=== PATIENT | male | born 1960 | race African-American/Black ===

== ENCOUNTER 2021-09-26 14:04 | Emergency (ER) | payer SELFPAY ==
[~2021-09-26] VITALS: Ht 182.9 cm; Wt 77.0 kg
[~2021-09-26 14:04] MED LIST: ETOMIDATE 2MG/ML 10ML VIAL IV ONE; SUCCINYLCHOLINE CHLORIDE 200MG/10ML IV ONE
[2021-09-26] MEDS ORDERED: SODIUM CHLORIDE 0.9% 1,000 ML IV ONE (14:45)
[2021-09-26] MEDS ORDERED: NICARDIPINE 50 MG in SODIUM CHLORIDE 0.9% 230 ML IV STA (15:26)
[2021-09-26 15:38] LABS: HEMATOCRIT. 34.3 % (42.0-52.0); HEMOGLOBIN. 11.2 g/dL (14.0-18.0); MEAN CORPUSCULAR HEMOGLOBIN 28.3 pg (28.0-32.0); MEAN CORPUSCULAR VOLUME 86.3 fL (80.0-94.0); MEAN PLATELET VOLUME 7.7 fl (7.4-10.4); PLATELET 145 x1000/uL (130-400); RED BLOOD CELL COUNT 3.98 mill/uL (4.7-6.1); RED CELL DISTRIBUTION WIDTH 15.8 % (11.6-14.6)
[2021-09-26 15:42] LABS: CHLORIDE 110 mEq/L (98-107)
[2021-09-26 15:43] LABS: INR 1.1; PROTHROMBIN TIME 11.3 sec (9.6-11.0)
[2021-09-26] MEDS ORDERED: NICARDIPINE 40MG/200ML PREMIX 200 ML IV NR (15:45)
[2021-09-26 15:54] LABS: ETHANOL BLOOD < 10 mg/dL
[2021-09-26 15:58] LABS: PLATELET ESTIMATE NORMAL
[2021-09-26] MEDS ORDERED: KCL 10MEQ/50ML PREMIX 50 ML IV ONE (16:15)
[2021-09-26] MEDS ORDERED: ETOMIDATE 2MG/ML 10ML VIAL IV ONE (16:45)
[2021-09-26] MEDS ORDERED: PROPOFOL 10MG/ML 100ML 100 ML IV SCH (16:45)
[2021-09-26] MEDS ORDERED: SUCCINYLCHOLINE CHLORIDE 200MG/10ML IV ONE (16:45)
[2021-09-26 17:29] LABS: CLARITY URINE CLEAR (CLEAR); COLOR URINE YELLOW (YELLOW); KETONES URINE NEGATIVE (NEGATIVE); LEUKOCYTE ESTERASE URINE TRACE (NEGATIVE); NITRITE URINE NEGATIVE (NEGATIVE); OCCULT BLOOD URINE 1+ (NEGATIVE); PH URINE 6.5 (4.5-8.0); PROTEIN URINE 3+ (NEGATIVE); SPECIFIC GRAVITY URINE 1.012 (1.005-1.030); UROBILINOGEN URINE 0.2 E.U./dL (0.2-1.0)
[2021-09-26 17:44] VITALS: BP 131/79
== END 2021-09-26 17:46 | disposition short-term general hospital (02) ==
LOC: ER 14:13 → EDBD 14:13 → ER 17:46
DX: I62.9 Nontraumatic intracranial hemorrhage, unspecified (principal); E87.6 Hypokalemia
CPT/HCPCS: 31500; 36415; 70450; 71045; 80053; 80307; 80320; 81003; 82962; 83605; 83690; 84443; 84484; 85025; 85610; 87426; 94002; 96374; 96375; 99291; C9803; J0330; J2704; J3480; J3490; J7030; Z7610; J7050; G0480